=== PATIENT | female | born 1975 ===

== ENCOUNTER 2017-05-23 17:35 | Emergency (ER) | payer OTHER ==
[2017-05-23 17:52] VITALS: BP 113/73; PULSE 100; RESP 16; TEMP 97.9; O2SAT 99
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
== END 2017-05-23 20:28 | disposition home or self-care (01) ==
LOC: H.ER 17:35
DX: S09.90XA Unspecified injury of head, initial encounter (principal); W22.8XXA Striking against or struck by other objects, initial encounter; Y92.89 Other specified places as the place of occurrence of the external cause

== ENCOUNTER 2017-07-25 19:00 | Emergency (ER) | payer SELFPAY ==
[2017-07-26 04:26] VITALS: BP 108/66; PULSE 95; RESP 18; TEMP 98.1
== END 2017-07-25 20:45 | disposition home or self-care (01) ==
LOC: H.EROB2 19:00
DX: O36.8120 Decreased fetal movements, second trimester, not applicable or unspecified (principal); Z3A.22 22 weeks gestation of pregnancy